=== PATIENT | male | born 1970 | race Two or more races ===

== ENCOUNTER 2021-02-20 18:54 | Emergency (ER) | payer MEDICAID ==
[~2021-02-20] VITALS: Ht 162.6 cm; Wt 63.6 kg
[2021-02-20 19:21] VITALS: BP 110/63
== END 2021-02-20 19:53 | disposition home or self-care (01) ==
LOC: EMS 18:56
DX: F11.988 Opioid use, unspecified with other opioid-induced disorder (principal)
CPT/HCPCS: 99283